=== PATIENT | female | born 1970 | race Caucasian/White ===

== ENCOUNTER 2022-07-11 11:58 | Observation (INO) ==
[2022-07-11 12:32] LABS: Basophils % 0.4 % (0.0-0.8); Eosinophils # 0.2 10*3/uL (0.0-0.87); Eosinophils % 4.9 % (0.00-10.9); Hematocrit 37.7 VOL% (35.7-47.0); Hemoglobin 12.4 GM/DL (12.0-16.0); Immature Granulocytes % 0.2 %; Immature Granulocytes Absolute 0.01 #; Lymphocytes # 1.1 10*3/uL (1.4-4.0); Lymphocytes % 24.9 % (21.3-54.2); Mean Corpuscular HGB Conc 32.9 GM/DL (32-36); Mean Corpuscular Volume 91.5 FL (87-102); Mean Platelet Volume 8.9 FL (9.6-12.0); Monocytes # 0.4 10*3/uL (0.11-0.8); Monocytes % 8.5 % (1.7-12.7); Neutrophils % 61.1 % (38.7-73.9); Platelet Count 293 T/CUMM (130-400); Red Blood Count 4.12 MC/CUMM (3.8-5.5); Red Cell Distribution Width 12.7 % (9.3-17.3); White Blood Count 4.5 T/CUMM (4-12)
[2022-07-11 12:53] LABS: Alanine Aminotransferase 35 U/L (13-56); Albumin 3.7 G/DL (3.4-5.0); Alkaline Phosphatase 104 U/L (45-117); Aspartate Amino Transferase 23 U/L (0-37); Bilirubin,Total < 0.39 MG/DL (0.20-1.00); Blood Urea Nitrogen 17 MG/DL (7-18); Calcium 9.4 MG/DL (8.5-10.1); Carbon Dioxide 26 MMOL/L (21-32); Chloride 103 MMOL/L (98-107); Glucose 94 MG/DL (74-106); Potassium 4.2 MMOL/L (3.5-5.1); Sodium 136 MMOL/L (136-145); Total Protein 7.8 G/DL (6.4-8.2)
[2022-07-11] MEDS ORDERED: amLODIPine 5 MG TABLET PO STA (15:06)
[2022-07-11] MEDS ORDERED: ACETAMINOPHEN 325 MG TABLET PO PRN (15:46)
[2022-07-11] MEDS ORDERED: ONDANSETRON 4 MG/2 ML VIAL IV PRN (15:46)
[2022-07-11] MEDS ORDERED: traMADol 50 MG TABLET PO PRN (15:46)
[2022-07-11] MEDS ORDERED: KETOROLAC 15 MG/1 ML VIAL IV ONE (19:02)
[2022-07-11] MEDS ORDERED: cloNIDine 0.1 MG TABLET PO PRN (19:03)
[2022-07-11] MEDS ORDERED: ALUM/MAG/SIMETH/LIDO VISC 1:1 30 ML BOTTLE PO ONE (19:03)
[2022-07-11] MEDS ORDERED: KETOROLAC 15 MG/1 ML VIAL IV PRN (19:27)
[2022-07-11] MEDS: DOCUSATE SODIUM 100 MG CAPSULE PO SCH (20:47)
[2022-07-12 05:41] LABS: Basophils % 0.6 % (0.0-0.8); Eosinophils # 0.3 10*3/uL (0.0-0.87); Eosinophils % 7.8 % (0.00-10.9); Hematocrit 34.1 VOL% (35.7-47.0); Hemoglobin 11.2 GM/DL (12.0-16.0); Immature Granulocytes % 0.3 %; Immature Granulocytes Absolute 0.01 #; Lymphocytes # 0.8 10*3/uL (1.4-4.0); Lymphocytes % 22.8 % (21.3-54.2); Mean Corpuscular HGB Conc 32.8 GM/DL (32-36); Mean Corpuscular Volume 92.9 FL (87-102); Monocytes # 0.4 10*3/uL (0.11-0.8); Monocytes % 12.7 % (1.7-12.7); Neutrophils % 55.8 % (38.7-73.9); Platelet Count 246 T/CUMM (130-400); Red Blood Count 3.67 MC/CUMM (3.8-5.5); Red Cell Distribution Width 12.7 % (9.3-17.3); White Blood Count 3.5 T/CUMM (4-12)
[2022-07-12 06:00] LABS: Risk Ratio 1.91; VLDL Cholesterol 10.2 MG/DL
[2022-07-12 06:06] LABS: Calcium 9.4 MG/DL (8.5-10.1); Potassium 3.9 MMOL/L (3.5-5.1)
[2022-07-12 08:13] VITALS: BP 121/88
[2022-07-12] MEDS: DOCUSATE SODIUM 100 MG CAPSULE PO SCH (08:23)
[2022-07-12] MEDS ORDERED: VENLAFAXINE XR 75 MG CAPSULE PO SCH (09:00)
[2022-07-12] MEDS ORDERED: PANTOPRAZOLE 40 MG TABLET PO SCH (09:00)
== END 2022-07-12 10:37 | disposition home or self-care (01) ==
LOC: N.EDINP 11:58 → N.ED 11:58 → N.2W 17:51
PROVIDERS: ADMIT Family Medicine; ATTEND Family Medicine